=== PATIENT | female | born 2000 | race Caucasian/White ===

== ENCOUNTER 2018-08-02 20:21 | Emergency (ER) | payer MEDICAID ==
[~2018-08-02] VITALS: Ht 160 cm; Wt 105.0 kg
[2018-08-02] MEDS ORDERED: AMOXICILLIN/POTASSIUM CLAVULANATE 875/125MG TAB PO ONE (23:00)
[2018-08-02] MEDS ORDERED: IBUPROFEN 600MG TABLET PO ONE (23:00)
[2018-08-03] MEDS ORDERED: BACITRACIN ZINC OINT UDPKT TOP ONE (01:15)
[2018-08-03 01:30] VITALS: BP 129/72
== END 2018-08-03 01:43 | disposition home or self-care (01) ==
LOC: ER 20:21
DX: S51.851A Open bite of right forearm, initial encounter (principal); W54.0XXA Bitten by dog, initial encounter; Y93.89 Activity, other specified; Y92.89 Other specified places as the place of occurrence of the external cause
CPT/HCPCS: 73090; 81025; 99284